=== PATIENT | female | born 1980 | race Two or more races ===

== ENCOUNTER 2020-12-10 09:59 | Outpatient (CLI) | payer OTHER | END 2020-12-10 10:06 | disposition home or self-care (01) | LOC: RAD 09:59 | PROVIDERS: ATTEND Podiatrist Foot Surgery | DX: M77.32 Calcaneal spur, left foot (principal); M77.31 Calcaneal spur, right foot ==

== ENCOUNTER 2023-10-01 13:01 | Emergency (ER) | payer OTHER ==
[~2023-10-01] VITALS: Ht 160 cm; Wt 77.1 kg
[2023-10-01] MEDS ORDERED: KETOROLAC TROMETHAMINE 15 MG VIAL IM STA (14:48)
[2023-10-01] MEDS ORDERED: ACETAMINOPHEN 500 MG GEL..CAP PO SCH (15:45)
[2023-10-01] MEDS ORDERED: HYDROCHLOROTH12.5 MG PO (16:18)
== END 2023-10-01 16:39 | disposition home or self-care (01) ==
LOC: ER 13:01
DX: R51.9 Headache, unspecified (principal); I10 Essential (primary) hypertension; Z98.84 Bariatric surgery status
CPT/HCPCS: 93005; 96372; 99282; J1885

== ENCOUNTER 2023-12-09 11:25 | Emergency (ER) | payer OTHER ==
[~2023-12-09] VITALS: Ht 160 cm; Wt 75.7 kg
[~2023-12-09 11:25] MED LIST: HYDROCHLOROTH12.5 MG PO
[2023-12-09] MEDS ORDERED: ZESTRIL30 MG (12:07)
[2023-12-09] MEDS ORDERED: 0.9 % SODIUM CHLORIDE 1,000 ML IV SCH (13:00)
[2023-12-09] MEDS ORDERED: KETOROLAC TROMETHAMINE 30 MG VIAL IV ONE (13:00)
[2023-12-09 13:09] LABS: HEMATOCRIT 38.8 % (36.0-45.00); HEMOGLOBIN 12.9 g/dL (12.0-15.00); MEAN CELL VOLUME 80.3 fL (80.00-100.00); MEAN CORPUSCULAR HEMOGLOBIN 26.6 pg (27.00-32.0); MEAN CORPUSCULAR HGB CONC 33.1 g/dl (32.0-36.0); PLATELET COUNT 296 K/uL (150-450); RED BLOOD COUNT 4.83 M/uL (4.00-6.00); RED CELL DISTRIBUTION WIDTH 15.6 % (11.5-14.5)
[2023-12-09 13:32] LABS: PH,URINE 7.5 (5.0-8.0); URINE APPEARANCE Clear; URINE BILIRRUBIN Negative (NEGATIVE); URINE BLOOD Negative; URINE COLOR Yellow; URINE GLUCOSE Negative (NEGATIVE); URINE LEUKOCYTE Trace; URINE NITRATE Negative; URINE PROTEIN Trace (NEGATIVE)
[2023-12-09 13:36] LABS: URINE BACTERIA 314.9 uL (0.0-1933); URINE RBC 5.1 uL (0.0-20.8); URINE WBC 8.1 uL (0.0-23.2)
[2023-12-09 15:50] LABS: ALBUMIN 3.7 gm/dL (3.4-5.0); BILIRUBIN TOTAL 0.54 mg/dL (0.3-1.2); CALCIUM 11.8 mg/dL (8.5-10.1); CREATININE SERUM 0.69 mg/dL (0.55-1.02); GLOBULINA 4.5 G/DL (2.4-3.5); POTASSIUM 4.36 mEq/L (3.5-5.1); TOTAL PROTEIN 8.2 gm/dL (6.4-8.2)
[2023-12-09 16:21] LABS: PARTIAL THROMBOPLASTIN TIME 27.1 SECONDS (22.0-34.0); PROTHROMBIN TIME 10.5 SECONDS (9.0-11.5)
== END 2023-12-09 17:51 | disposition home or self-care (01) ==
LOC: ER 11:26
PROVIDERS: General Practice
DX: R10.31 Right lower quadrant pain (principal)
CPT/HCPCS: 36415; 74177; 96365; 96366; 99284; J7030; Q9965